=== PATIENT | male | born 1990 | race Caucasian/White ===

== ENCOUNTER 2020-03-18 03:02 | Emergency (ER) | payer BC, OTHER ==
--- NOTE | 2020-03-18 04:28 | CR ---
INDICATION: Chest pain TECHNIQUE: Chest radiograph 1 view COMPARISON: None FINDINGS: Cardiovascular and mediastinum: The heart silhouette is normal in size and morphology. The mediastinum is normal in appearance. Lungs and pleural spaces: Both lungs are unremarkable in appearance. No sign of pleural effusion seen. No pneumothorax is identified. Bones and soft tissues: No significant findings. IMPRESSION: 1. No acute cardiopulmonary disease is seen. Dictated by José Landry MD @ 03/18/2020 4:26:09 AM Dictated by: José Landry MD @ 03/18/2020 04:26:14 (Electronically Signed)
--- NOTE | 2020-03-18 04:30 | EDM.PDOC ---
ED HPI GENERAL MEDICAL PROBLEM - General Chief Complaint: Chest Pain Stated Complaint: CHEST PAIN Time Seen by Provider: 03/18/20 04:29 Source of Information: Reports: Patient History Limitations: Reports: No Limitations - History of Present Illness INITIAL COMMENTS - FREE TEXT/NARRATIVE: Patient is a 29-year-old male who is complaining of having lower chest pain epigastric area pain for the last 4 days. Patient was seen and tested for COVID which was -4 days ago. He denies any cough or any shortness of breath. He states the pain seems somewhat sharp in nature and denies any fever or chills. He has not been nauseous is been no nausea vomiting or diarrhea. Patient states pain is worse when he lays down at night and after meals. He denies any vomiting denies any bloody or tarry stools. Patient has no previous history of similar pain. He has taken nothing for his current symptoms. Duration: Day(s): (four) Location: Reports: Chest, Abdomen Quality: Reports: Dull, Sharp Severity: Moderate Improves with: Reports: None Worsens with: Reports: Eating, Rest Associated Symptoms: Reports: No Other Symptoms Middle Chest Pain Score (Numeric/FACES): 8 - Related Data Allergies Allergy/AdvReac Type Severity Reaction Status Date / Time No Known Allergies Allergy Verified 03/18/20 03:22 Home Meds: Home Meds Acetaminophen/HYDROcodone [Argyle 325-5 MG] 1 tab PO Q6H PRN #10 tablet 03/18/20 [Rx] Sucralfate [Carafate] 1 gm PO QID #60 tablet 03/18/20 [Rx] Past Medical History Musculoskeletal History: Reports: Other (See Below) Other Musculoskeletal History: knee surgery Social & Family History - Family History Family Medical History: Noncontributory - Tobacco Use Smoking Status *Q: Never Smoker - Recreational Drug Use Recreational Drug Use: No ED ROS GENERAL - Review of Systems Review Of Systems: Comprehensive ROS is negative, except as noted in HPI. ED EXAM, GENERAL - Physical Exam Exam: See Below Exam Limited By: No Limitations General Appearance: Alert, No Apparent Distress Head: Normocephalic Neck: Normal Inspection, Non-Tender Respiratory/Chest: No Respiratory Distress, Lungs Clear, Normal Breath Sounds, Chest Non-Tender Cardiovascular: Regular Rate, Rhythm, No JVD GI/Abdominal: Normal Bowel Sounds, Soft, Tender. No: Distended, Guarding, Rigid , Rebound Back Exam: Normal Inspection Extremities: Normal Inspection, No Pedal Edema Neurological: Alert, Oriented Psychiatric: Normal Affect Skin Exam: Warm, Dry EKG INTERPRETATION Rhythm: NSR QRS: Normal ST-T: Normal Course - Vital Signs Text/Narrative:: Patient's lab work including troponin and LFTs and lipase were all normal. Patient is feeling better after GI cocktail. I am discharging him home at this time for epigastric pain most likely gastroesophageal reflux disease. I have instructed him to get some [id number] Prilosec for the next 2 to 4 weeks and an acids as needed. He should eat a low-fat diet with small meals only. He should follow-up with a restaurant inspector if his symptoms continue for additional work-up and treatment. I will give him a prescription for some Carafate and a few tablets of Argyle. He may return to emergency department anytime if symptoms were to worsen. He also should return if having exertional symptoms. Last Recorded V/S: Last Vital Signs Temp 36.4 C 03/18/20 03:19 Pulse 61 03/18/20 03:19 Resp 16 03/18/20 03:19 BP 126/90 03/18/20 03:19 Pulse Ox 97 03/18/20 03:19 - Orders/Labs/Meds Orders: Active Orders 24 hr Category Date Time Status EKG 12 Lead [EKG Documentation Completion] [RC] STAT Care 03/18/20 03:41 Active Labs: Laboratory Tests 03/18/20 03/18/20 Range/Units 04:43 04:43 WBC 7.25 (4.0-11.0) K/uL RBC 5.52 (4.50-5.90) M/uL Hgb 16.0 (13.0-17.0) g/dL Hct 45.7 (38.0-50.0) % MCV 82.8 (80.0-98.0) fL MCH 29.0 (27.0-32.0) pg MCHC 35.0 (31.0-37.0) g/dL RDW Std Deviation 39.9 (28.0-62.0) fl RDW Coeff of [place] 13 (11.0-15.0) % Plt Count 227 (150-400) K/uL MPV 10.60 (7.40-12.00) fL Neut % (Auto) 40.6 L (48.0-80.0) % Lymph % (Auto) 48.8 H (16.0-40.0) % [place] % (Auto) 7.9 (0.0-15.0) % Eos % (Auto) 2.3 (0.0-7.0) % Baso % (Auto) 0.4 (0.0-1.5) % Neut # (Auto) 2.9 (1.4-5.7) K/uL Lymph # (Auto) 3.5 H (0.6-2.4) K/uL [place] # (Auto) 0.6 (0.0-0.8) K/uL Eos # (Auto) 0.2 (0.0-0.7) K/uL Baso # (Auto) 0.0 (0.0-0.1) K/uL Nucleated RBC % 0.0 /100WBC Nucleated RBCs # 0 K/uL Sodium 138 (136-148) mmol/L Potassium 3.9 (3.5-5.1) mmol/L Chloride 101 (98-107) mmol/L Carbon Dioxide 30.4 (21.0-32.0) mmol/L BUN 14 (7.0-18.0) mg/dL Creatinine 0.9 (0.8-1.3) mg/dL Est Cr Clr Drug Dosing 118.22 mL/min Estimated GFR (MDRD) > 60.0 ml/min Glucose 101 (74-106) mg/dL Calcium 9.6 (8.5-10.1) mg/dL Total Bilirubin 0.3 (0.2-1.0) mg/dL AST 24 (15-37) IU/L ALT 70 H (14-63) IU/L Alkaline Phosphatase 108 (46-116) U/L Troponin I < 0.050 (0.000-0.056) ng/mL Total Protein 7.0 (6.4-8.2) g/dL Albumin 4.0 (3.4-5.0) g/dL Globulin 3.0 (2.6-4.0) g/dL Albumin/Globulin Ratio 1.3 (0.9-1.6) Lipase 92 (73-393) U/L Meds: Medications Discontinued Medications Generic Name Dose Route Start Last Admin Trade Name Ryanq PRN Reason Stop Dose Admin Al Hydroxide/Mg Hydroxide 15 0 ml 03/18/20 04:35 03/18/20 04:57 ml/ Lidocaine HCl 5 ml PO 03/18/20 04:36 1 each ONETIME ONE Administration Departure - Departure Time of Disposition: 05:52 Disposition: Home, Self-Care 01 Condition: Good Clinical Impression: Atypical chest pain, Gastroesophageal reflux disease Instructions: Nonspecific Chest Pain, Adult, Food Choices for Gastroesophageal Reflux Disease, Adult, Esophagitis Referrals: PCP,None [Primary Care Provider] - Forms: ED Department Discharge Additional Instructions: The following information is given to patients seen in the emergency department who are being discharged to home. This information is to outline your options for follow-up care. We provide all patients seen in our emergency department with a follow-up referral. The need for follow-up, as well as the timing and circumstances, are variable depending upon the specifics of your emergency department visit. If you don't have a primary care physician on staff, we will provide you with a referral. We always advise you to contact your personal physician following an emergency department visit to inform them of the circumstance of the visit and for follow-up with them and/or the need for any referrals to a consulting specialist. The emergency department will also refer you to a specialist when appropriate. This referral assures that you have the opportunity for follow-up care with a specialist. All of these measure are taken in an effort to provide you with optimal care, which includes your follow-up. Under all circumstances we always encourage you to contact your private physician who remains a resource for coordinating your care. When calling for follow-up care, please make the office aware that this follow-up is from your recent emergency room visit. If for any reason you are refused follow-up, please contact the [facility] Emergency Department at and asked to speak to the emergency department charge nurse. Care Plan Goals: [id number] Prilosec and antiacids. Carafate and Argyle as needed. Follow- up with a restaurant inspector if symptoms continue. Return to ER symptoms are worse or exertional. Sepsis Event Note - Evaluation Sepsis Screening Result: No Definite Risk - Focused Exam Vital Signs: Vital Signs Temp Pulse Resp BP Pulse Ox 05/25/20 03:19 36.4 C 61 16 126/90 97 Date Exam was Performed: 03/18/20 Time Exam was Performed: 05:44 - My Orders Last 24 Hours: My Active Orders 03/18/20 03:41 EKG 12 Lead [EKG Documentation Completion] [RC] STAT - Assessment/Plan Last 24 Hours: My Active Orders 03/18/20 03:41 EKG 12 Lead [EKG Documentation Completion] [RC] STAT
[2020-03-18] MEDS ORDERED: Alum Hydrox/Mag Hydrox/Simeth 15 ML, Lidocaine 2% 5 ML PO ONE ×2 (04:35)
[2020-03-18 05:11] LABS: BLOOD UREA NITROGEN,BUN 14 mg/dL (7.0-18.0); CARBON DIOXIDE,CO2 30.4 mmol/L (21.0-32.0); CHLORIDE,CL 101 mmol/L (98-107); GLUCOSE RANDOM 101 mg/dL (74-106); LIPASE 92 U/L (73-393); POTASSIUM,K 3.9 mmol/L (3.5-5.1); SODIUM,NA 138 mmol/L (136-148)
== END 2020-03-18 04:36 | disposition home or self-care (01) ==
LOC: MW.ED 03:02
DX: K21.9 Gastro-esophageal reflux disease without esophagitis (principal)
CPT/HCPCS: 36415; 71045; 80053; 83690; 84484; 85025; 93005; 99285; A9270; 99283

== ENCOUNTER 2025-06-21 09:23 | Emergency (ER) | payer BC ==
[2025-06-21] MEDS: Ketorolac 30 MG/ML SDV IM ONE (11:20)
== END 2025-06-21 11:31 | disposition home or self-care (01) ==
LOC: MW.ED 09:23
DX: S49.91XA Unspecified injury of right shoulder and upper arm, initial encounter (principal); Z79.899 Other long term (current) drug therapy; W01.0XXA Fall on same level from slipping, tripping and stumbling without subsequent striking against object, initial encounter
CPT/HCPCS: 73030; 96372; 99284; J1885